=== PATIENT | male | born 1955 | race Caucasian/White ===

== ENCOUNTER 2018-07-16 18:06 | Inpatient (IN) | payer MEDICARE, OTHER ==
--- NOTE | 2018-07-16 19:02 | ER Document Report ---
ED Medical Screen (RME) - General Chief Complaint: Cough Stated Complaint: CONGESTION Time Seen by Provider: 07/16/18 18:55 Primary Care Provider: DONA OLIVAREZ NP [Primary Care Provider] - Follow up as needed Mode of Arrival: Ambulatory Information source: Patient Notes: 63-year-old male presented to ED for complaint of cough cold congestion since night. He states that his temperature was up to 103. He states is not really had a high fever since then. States he had a low-grade fever. He does have a history of COPD spinocerebellar disease bladder cancer which the tumors were removed a fractured ankle with surgeries x2 and tremors. He states he lives with his . He is a former smoker he quit when he was diagnosed with COPD and is drinks about a 12 pack a day. states he does often have tremors. Patient is alert oriented respirations regular and unlabored speaking in full sentences. Patient does have some mild Rales throughout his lungs. I have greeted and performed a rapid initial assessment of this patient. A comprehensive ED assessment and evaluation of the patient, analysis of test results and completion of medical decision making process will be conducted by an additional ED providers. Dictation of this chart was performed using voice recognition software; therefore, there may be some unintended grammatical errors. TRAVEL OUTSIDE OF THE [place] IN LAST 30 DAYS: No - Related Data Allergies/Adverse Reactions: iodine Allergy (Verified 07/16/18 18:11) Past Medical History - Past Medical History Cardiac Medical History: Reports: Hx Hypertension - Has recently been taken off all medications. Denies: Hx Heart Attack Pulmonary Medical History: Reports: Hx COPD Denies: Hx Asthma, Hx Bronchitis, Hx Pneumonia Neurological Medical History: Denies: Hx Cerebrovascular Accident, Hx Seizures Endocrine Medical History: Reports: Hx Diabetes Mellitus Type 2 - Diet controlled GI Medical History: Reports: Hx Gastroesophageal Reflux Disease, Hx Hiatal Hernia Musculoskeltal Medical History: Denies Hx Arthritis Past Surgical History: Reports: Hx Abdominal Surgery - tumor removed from bladder, Hx Orthopedic Surgery - ankle - Immunizations Hx Diphtheria, Pertussis, Tetanus Vaccination: Yes Physical Exam - Vital signs Vitals: Temp Pulse Resp BP Pulse Ox 98.0 F 96 24 H 123/80 98 07/16/18 18:19 07/16/18 18:19 07/16/18 18:19 07/16/18 18:19 07/16/18 18:19 Course - Vital Signs Vital signs: Temp Pulse Resp BP Pulse Ox 98.0 F 96 24 H 123/80 98 07/16/18 18:19 07/16/18 18:19 07/16/18 18:19 07/16/18 18:19 07/16/18 18:19 Doctor's Discharge - Discharge Referrals: DONA OLIVAREZ NP [Primary Care Provider] - Follow up as needed
--- NOTE | 2018-07-16 19:53 | RADIOLOGY REPORT (SQ) ---
EXAM DESCRIPTION: CHEST 2 VIEWS COMPLETED DATE/TIME: 07/16/2018 7:17 pm REASON FOR STUDY: cough congestion COMPARISON: 11/25/2015. EXAM PARAMETERS: NUMBER OF VIEWS: two views TECHNIQUE: Digital Frontal and Lateral radiographic views of the chest acquired. RADIATION DOSE: NA LIMITATIONS: none FINDINGS: LUNGS AND PLEURA: Scattered ill-defined airspace disease in the right lung. Left lung rel atively clear. No pleural effusion. No pneumothorax. MEDIASTINUM AND HILAR STRUCTURES: No masses or contour abnormalities. HEART AND VASCULAR STRUCTURES: Heart normal size. No evidence for failure. BONES: No acute findings. HARDWARE: None in the chest. OTHER: No other significant finding. IMPRESSION: SCATTERED AIRSPACE DISEASE IN THE RIGHT LUNG SUSPICIOUS FOR PNEUMONIA. TECHNICAL DOCUMENTATION: JOB ID: [id number] [employer]- All Rights Reserved Reading location - IP/workstation name: [email or web address]
[2018-07-16 20:05] LABS: ABSOLUTE LYMPHOCYTES (AUTO) 0.5 10^3/uL (0.5-4.7); ABSOLUTE MONOCYTES (AUTO) 0.9 10^3/uL (0.1-1.4); ABSOLUTE NEUT (AUTO) 8.4 10^3/uL (1.7-8.2); BASOPHILS % (AUTO) 0.1 % (0-2); HEMATOCRIT 42.9 % (37.9-51.0); HEMOGLOBIN 14.9 g/dL (13.5-17.0); LYMPHOCYTES % (AUTO) 5.4 % (13-45); MEAN CORPUSCULAR HEMOGLOBIN 34.3 pg (27.0-33.4); MEAN CORPUSCULAR HGB CONC 34.6 g/dL (32.0-36.0); MEAN CORPUSCULAR VOLUME 99 fl (80-97); PLATELET COUNT 200 10^3/uL (150-450); RED BLOOD COUNT 4.34 10^6/uL (4.35-5.55); RED CELL DISTRIBUTION WIDTH 13.6 % (11.5-14.0); SEGMENTED NEUTROPHILS % (AUTO) 85.5 % (42-78); TOTAL CELLS COUNTED % (AUTO) 100 %; WHITE BLOOD COUNT 9.8 10^3/uL (4.0-10.5)
[2018-07-16 20:10] LABS: APPEARANCE,URINE SLIGHTLY-CLOUDY; BILIRUBIN,URINE NEGATIVE (NEGATIVE); COLOR,URINE AMBER; GLUCOSE, URINE NEGATIVE (NEGATIVE); KETONES,URINE 20 mg/dL (NEGATIVE); LEUKOCYTE ESTERASE,URINE NEGATIVE (NEGATIVE); NITRITE,URINE NEGATIVE (NEGATIVE); PROTEIN,URINE 30 mg/dL (NEGATIVE); URINE SPECIFIC GRAVITY 1.017
[2018-07-16 20:16] LABS: ALANINE AMINOTRANSFERASE 50 U/L (21-72); ALBUMIN 4.1 g/dL (3.5-5.0); ALKALINE PHOSPHATASE 108 U/L (38-126); ANION GAP 19 (5-19); ASPARTATE AMINO TRANSFERASE 79 U/L (17-59); BILIRUBIN,DIRECT 0.5 mg/dL (0.0-0.4); BILIRUBIN,TOTAL 0.8 mg/dL (0.2-1.3); BLOOD UREA NITROGEN 17 mg/dL (7-20); CALCIUM 10.1 mg/dL (8.4-10.2); CARBON DIOXIDE 23 mmol/L (22-30); CHLORIDE 90 mmol/L (98-107); GLUCOSE 125 mg/dL (75-110); POTASSIUM 4.2 mmol/L (3.6-5.0); TOTAL PROTEIN 7.7 g/dL (6.3-8.2)
[2018-07-17] MEDS ORDERED: CEFTRIAXONE INJ 1000 MG VIAL IV ONE (00:34)
[2018-07-17] MEDS ORDERED: AZITHROMYCIN 250 MG TABLET PO ONE (00:34)
[2018-07-17] MEDS ORDERED: METHYLPREDNISOLONE INJ 125 MG/2 ML SDV IV ONE (00:34)
[2018-07-17] MEDS ORDERED: IPRATROPIUM/ALBUTEROL 0.5-2.5 MG/3 ML AMPUL NEB ONE (00:34)
[2018-07-17] MEDS ORDERED: LORAZEPAM INJ 2 MG/1 ML VIAL IV ONE (00:34)
[2018-07-17] MEDS ORDERED: RINGERS SOLUTION,LACTATED 1,000 ML IV ONE (00:35)
[2018-07-17] MEDS ORDERED: GUAIFENESIN SYRP 200 MG/10 ML UDC PO PRN (00:39)
[2018-07-17] MEDS ORDERED: IPRATROPIUM/ALBUTEROL 0.5-2.5 MG/3 ML AMPUL NEB PRN ×2 (00:39→15:32)
[2018-07-17] MEDS ORDERED: ACETAMINOPHEN 325 MG TABLET PO PRN (00:39)
--- NOTE | 2018-07-17 00:40 | ER Document Report ---
ED General - General Chief Complaint: Cough Stated Complaint: CONGESTION Time Seen by Provider: 07/16/18 18:55 Primary Care Provider: DONA OLIVAREZ NP [NO LOCAL MD] - Follow up as needed Mode of Arrival: Ambulatory Notes: Patient is a 63-year-old male with a past medical history of COPD, does not currently smoke, does not have an oxygen dependency at baseline, history of daily alcohol abuse, hypertension, presents due to 2 days of cough, increasing shortness of breath. Symptoms started gradually, have been worsening since onset and are now constant. Regards him as being severe. Nothing improves or worsens his symptoms. States that this feels similar to when he has had COPD exacerbations in the past. Has not seen his primary care physician regarding today's concerns. Has not had any vomiting, diarrhea, fever, or syncope. Does admit to feeling as though he is beginning to withdraw from alcohol. TRAVEL OUTSIDE OF THE [place] IN LAST 30 DAYS: No - Related Data Allergies/Adverse Reactions: iodine Allergy (Verified 07/16/18 18:11) Past Medical History - General Information source: Patient - Social History Smoking Status: Former Smoker Chew tobacco use (# tins/day): No Frequency of alcohol use: Heavy Drug Abuse: None Lives with: Spouse/Significant other Family History: Hypertension Patient has suicidal ideation: No Patient has homicidal ideation: No - Past Medical History Cardiac Medical History: Reports: Hx Hypertension - Has recently been taken off all medications. Denies: Hx Heart Attack Pulmonary Medical History: Reports: Hx COPD Denies: Hx Asthma, Hx Bronchitis, Hx Pneumonia Neurological Medical History: Denies: Hx Cerebrovascular Accident, Hx Seizures Endocrine Medical History: Reports: Hx Diabetes Mellitus Type 2 - Diet controlled Renal/ Medical History: Denies: Hx Peritoneal Dialysis GI Medical History: Reports: Hx Gastroesophageal Reflux Disease, Hx Hiatal Hernia Musculoskeletal Medical History: Denies Hx Arthritis Past Surgical History: Reports: Hx Abdominal Surgery - tumor removed from bladder, Hx Orthopedic Surgery - ankle - Immunizations Hx Diphtheria, Pertussis, Tetanus Vaccination: Yes Hx Pneumococcal Vaccination: 01/04/15 Review of Systems - Review of Systems Notes: Constitutional: Negative for fever. HENT: Negative for sore throat. Eyes: Negative for visual changes. Cardiovascular: Negative for chest pain. Respiratory: Positive for cough and shortness of breath Gastrointestinal: Negative for abdominal pain, vomiting or diarrhea. Genitourinary: Negative for dysuria. Musculoskeletal: Negative for back pain. Skin: Negative for rash. Neurological: Negative for headaches, weakness or numbness. 10 point ROS negative except as marked above and in HPI. Physical Exam - Vital signs Vitals: Temp Pulse Resp BP Pulse Ox 98.0 F 96 24 H 123/80 98 07/16/18 18:19 07/16/18 18:19 07/16/18 18:19 07/16/18 18:19 07/16/18 18:19 Interpretation: Tachycardic, Hypoxic, Tachypneic Notes: PHYSICAL EXAMINATION: GENERAL: Appears somewhat older than stated age, somewhat labored in his breathing but in no overt distress. HEAD: Atraumatic, normocephalic. EYES: Pupils equal round and reactive to light, extraocular movements intact, sclera anicteric, conjunctiva are normal. ENT: nares patent, oropharynx clear without exudates. Moderately dry mucous membranes. NECK: Normal range of motion, supple without lymphadenopathy LUNGS: Scattered wheezing in all lung sparks, diminished at the right base in p articular. Mild tachypnea. No distress. HEART: Regular tachycardia without murmurs ABDOMEN: Soft, nontender, normoactive bowel sounds. No guarding, no rebound. No masses appreciated. EXTREMITIES: Normal range of motion, no pitting or edema. No cyanosis. NEUROLOGICAL: No focal neurological deficits. Moves all extremities spontaneously and on command. Mildly tremulous PSYCH: Normal mood, normal affect. SKIN: Warm, Dry, normal turgor, no rashes or lesions noted. Course - Re-evaluation Re-evalutation: 07/17/18 00:35 Patient presents with hypoxia, cough, and shortness of breath. Saturating 88% on room air. Does not have a history of oxygen dependence. The patient is found on chest x-ray to have sided infiltrate on on lung examination also has scattered wheezing in all lung sparks consistent with a combined pneumonia and COPD picture. His labs are otherwise unremarkable. Patient also appears to have some alcohol withdrawal at time of presentation with tremulousness and tachycardia which could be secondary to his underlying hypoxia, COPD and pneumonia but could also be contributed to due to his alcohol withdrawal. He has been started on Ativan here in the emergency department. I have started him on ceftriaxone and azithromycin for his pneumonia. IV fluid resuscitation, steroids and duo nebulizers have been initiated for his COPD exacerbation. The patient is not appropriate for outpatient management given his hypoxia. I have discussed this case with Dr. Rios the hospitalist on-call who is accepted the patient for admission. - Vital Signs Vital signs: Temp Pulse Resp BP Pulse Ox 98.0 F 96 24 H 123/80 98 07/16/18 18:19 07/16/18 18:19 07/16/18 18:19 07/16/18 18:19 07/16/18 18:19 - Laboratory Result Diagrams: 07/16/18 19:35 07/16/18 19:35 Laboratory results interpreted by me: 07/16/18 07/16/18 07/16/18 19:20 19:35 19:35 RBC 4.34 L MCV 99 H MCH 34.3 H Seg Neutrophils % 85.5 H Lymphocytes % 5.4 L Absolute Neutrophils 8.4 H Sodium 132.0 L Chloride 90 L Glucose 125 H Direct Bilirubin 0.5 H AST 79 H Urine Protein 30 H Urine Ketones 20 H Urine Blood SMALL H Urine Urobilinogen 2.0 H - Diagnostic Test Radiology reviewed: Image reviewed, Reports reviewed Radiology results interpreted by me: 07/17/18 00:38 Chest x-ray: Right-sided pneumonia Discharge - Discharge Clinical Impression: COPD exacerbation COPD (chronic obstructive pulmonary disease) Qualifiers: COPD type: unspecified COPD Qualified Code(s): J44.9 - Chronic obstructive pulmonary disease, unspecified Alcohol withdrawal Qualifiers: Complication of substance-induced condition: uncomplicated Qualified Code(s): F10.230 - Alcohol dependence with withdrawal, uncomplicated Pneumonia Qualifiers: Pneumonia type: due to unspecified organism Laterality: right Lung location: unspecified part of lung Qualified Code(s): J18.9 - Pneumonia, unspecified organism Condition: Fair Disposition: ADMITTED INPATIENT Admitting Provider: Gabriel (Hospitalist) Unit Admitted: [facility] Referrals: DONA OLIVAREZ NP [NO LOCAL MD] - Follow up as needed
[2018-07-17] MEDS ORDERED: NICOTINE 7 MG/24 HR PATCH.TD24 TD ONE (00:44)
[2018-07-17] MEDS: FOLIC ACID 1 MG TABLET PO SCH ×2 (00:59→09:28)
[2018-07-17] MEDS: DIAZEPAM 5 MG TABLET PO SCH ×2 (01:16→09:28)
[2018-07-17] MEDS: THIAMINE HCL 100 MG TABLET PO SCH ×2 (01:17→09:28)
[2018-07-17] MEDS: FLUTICASONE NASAL SPRAY 50 MCG/SPRY 120 SPRAY/16 GM NASL SCH ×3 (01:32→21:55)
[2018-07-17] MEDS: LEVALBUTEROL HCL NEB 1.25 MG/3 ML AMPUL NEB SCH ×4 (02:38→19:55)
[2018-07-17] MEDS: IPRATROPIUM BROMIDE 0.02% NEB 0.5 MG/2.5 ML AMPUL NEB SCH ×4 (02:39→19:55)
[2018-07-17 03:30] LABS: HEMATOCRIT 36.9 % (37.9-51.0); MEAN CORPUSCULAR HEMOGLOBIN 33.8 pg (27.0-33.4); MEAN CORPUSCULAR HGB CONC 34.5 g/dL (32.0-36.0); MEAN CORPUSCULAR VOLUME 98 fl (80-97); RED BLOOD COUNT 3.76 10^6/uL (4.35-5.55); RED CELL DISTRIBUTION WIDTH 13.6 % (11.5-14.0); WHITE BLOOD COUNT 6.6 10^3/uL (4.0-10.5)
[2018-07-17 03:36] LABS: HEMOGLOBIN 12.7 g/dL (13.5-17.0)
[2018-07-17 03:43] LABS: ANION GAP 16 (5-19); BLOOD UREA NITROGEN 19 mg/dL (7-20); CALCIUM 9.3 mg/dL (8.4-10.2); CARBON DIOXIDE 21 mmol/L (22-30); CHLORIDE 94 mmol/L (98-107); GLUCOSE 140 mg/dL (75-110); POTASSIUM 3.9 mmol/L (3.6-5.0); SODIUM 130.9 mmol/L (137-145)
[2018-07-17 03:49] LABS: ABSOLUTE LYMPHOCYTES# (MANUAL) 0.6 10^3/uL (0.5-4.7); ABSOLUTE MONOCYTES # (MANUAL) 0.5 10^3/uL (0.1-1.4); ABSOLUTE NEUTROPHILS# (MANUAL) 5.5 10^3/uL (1.7-8.2); BAND NEUTROPHILS % (MANUAL) 5 % (3-5); BASOPHILS % (MANUAL) 0 % (0-2); EOSINOPHILS % (MANUAL) 0 % (0-6); LYMPHOCYTES % (MANUAL) 7 % (13-45); MONOCYTES % (MANUAL) 7 % (3-13); SEGMENTED NEUTROPHILS % (MAN) 79 % (42-78); TOTAL CELLS COUNTED 100
[2018-07-17 03:50] LABS: PLATELET CLUMPS PRESENT; PLATELET COMMENT ADEQUATE; PLATELET COUNT 178 10^3/uL (150-450); STOMATOCYTES SLIGHT
[2018-07-17] MEDS: HEPARIN SOD (PORCINE) 5,000 UNIT/ML 1 ML SYRINGE SUBCUT SCH ×3 (05:04→21:55)
[2018-07-17] MEDS: LORAZEPAM INJ 2 MG/1 ML VIAL IV PRN (05:27)
--- NOTE | 2018-07-17 05:52 | PDOC H&P ---
History of Present Illness Admission Date/PCP: 07/17/18 00:57 Patient complains of: Shortness of breath and nonproductive cough History of Present Illness: JAVON ALVA is a 63 year old male with a past medical history of hypertension, COPD, with 2 or 3 exacerbations per year, tobacco and heavy alcohol dependence. Patient is a poor historian but states symptoms of shortness of breath and cough have began gradually over a 2-week. Developing right abdominal wall pain while coughing prompts his evaluation in the emergency room grandson to have use of accessory muscles with retraction tachypnea, hypoxia, and a right lower lobe infiltrate. He started on empiric antibiotics and referred to the hospitalist for admission. Patient denies coughing or aspir ation though admittedly drinks approximately 12 beers per day slowing down of the last 72 hours he admits feeling shaky. Patient denies recent antibiotic use Past Medical History Cardiac Medical History: Reports: Hypertension - Has recently been taken off all medications. Denies: Myocardial Infarction Pulmonary Medical History: Reports: Chronic Obstructive Pulmonary Disease (COPD) Denies: Asthma, Bronchitis, Pneumonia Neurological Medical History: Denies: Seizures Endocrine Medical History: Reports: Diabetes Mellitus Type 2 - Diet controlled GI Medical History: Reports: Gastroesophageal Reflux Disease, Hiatal Hernia Musculoskeltal Medical History: Denies: Arthritis Psychiatric Medical History: Reports: Alcohol Dependency, Tobacco Dependency Hematology: Denies: Anemia Past Surgical History Past Surgical History: Reports: Orthopedic Surgery - ankle Social History Information Source: Patient, Emergency Med Personnel, [facility] Records Lives with: Spouse/Significant other Smoking Status: Former Smoker Frequency of Alcohol Use: Heavy Hx Recreational Drug Use: No Drugs: None - Advance Directive Resuscitation Status: Full Code Family History Family History: COPD, Hypertension Parental Family History Reviewed: Yes Children Family History Reviewed: Yes Sibling(s) Family History Reviewed.: Yes Medication/Allergy Home Medications: Benztropine Mesylate [Cogentin 1 mg Tablet] 1 tab PO BID 11/25/15 Esomeprazole Magnesium [Nexium] 40 mg PO DAILY 11/25/15 Meloxicam [Mobic] 0 mg PO QAM 11/25/15 Primidone [Mysoline] 150 mg PO QAM 11/25/15 Primidone [Mysoline] 200 mg PO QHS 11/25/15 Albuterol Sulfate [Ventolin 0.083% Neb 2.5 mg/3 ml Ampul] 2.5 mg NEB Q6HP PRN #1 pkg 11/29/15 Levalbuterol HCl [Xopenex Neb 1.25 mg/3 ml Ampul] 1.25 mg NEB Q6HP PRN #1 pkg 11/29/15 Levofloxacin [Levaquin 750 mg Tablet] 750 mg PO DAILY #5 tablet 11/29/15 Lorazepam [Ativan 0.5 mg Tablet] 0.5 mg PO DAILY #4 tab 11/29/15 Nebulizer [Nebulizer Machine] 1 each MC ASDIR PRN #1 kit 11/29/15 Prednisone [Deltasone 20 mg Tablet] 20 mg PO ASDIR #21 tablet 11/29/15 Allergies/Adverse Reactions: iodine Allergy (Verified 07/16/18 18:11) Review of Systems Constitutional: ABSENT: chills, fever(s), headache(s), weight gain, weight loss Eyes: ABSENT: visual disturbances Ears: ABSENT: hearing changes Cardiovascular: ABSENT: chest pain, dyspnea on exertion, edema, orthropnea, palpitations Respiratory: ABSENT: cough, hemoptysis Gastrointestinal: ABSENT: abdominal pain, constipation, diarrhea, hematemesis, hematochezia, nausea, vomiting Genitourinary: ABSENT: dysuria, hematuria Musculoskeletal: ABSENT: joint swelling Integumentary: ABSENT: rash, wounds Neurological: ABSENT: abnormal gait, abnormal speech, confusion, dizziness, focal weakness, syncope Psychiatric: ABSENT: anxiety, depression, homidical ideation, suicidal ideation Endocrine: ABSENT: cold intolerance, heat intolerance, polydipsia, polyuria Hematologic/Lymphatic: ABSENT: easy bleeding, easy bruising Physical Exam Vital Signs: Temp Pulse Resp BP Pulse Ox 100.0 F 125 H 28 H 145/78 H 96 07/17/18 03:48 07/17/18 03:48 07/17/18 03:48 07/17/18 03:48 07/17/18 03:48 Intake & Output 07/15/18 07/16/18 07/17/18 11:59 11:59 11:59 Weight 62.7 kg General appearance: PRESENT: cooperative, mild distress, thin, well-developed. ABSENT: hard of hearing, well-nourished Head exam: PRESENT: atraumatic, normocephalic Eye exam: PRESENT: conjunctiva pink, EOMI, PERRLA. ABSENT: scleral icterus Ear exam: PRESENT: normal external ear exam Mouth exam: PRESENT: moist, tongue midline Neck exam: ABSENT: carotid bruit, JVD, lymphadenopathy, thyromegaly Respiratory exam: PRESENT: accessory muscle use, prolonged expiratory phas, retraction, rhonchi, tachypnea. ABSENT: stridor Cardiovascular exam: PRESENT: +S1, +S2, tachycardia. ABSENT: irregular rhythm Pulses: PRESENT: normal dorsalis pedis pul Vascular exam: PRESENT: normal capillary refill GI/Abdominal exam: PRESENT: normal bowel sounds, soft, tenderness - Right lower quadrant abdominal wall tenderness with coughing. ABSENT: distended, guarding, mass, organolmegaly, rebound Rectal exam: PRESENT: deferred Extremities exam: PRESENT: full ROM. ABSENT: calf tenderness, clubbing, pedal edema Neurological exam: PRESENT: alert, altered, awake, oriented to person, oriented to place, oriented to time, oriented to situation, CN II-XII grossly intact. ABSENT: motor sensory deficit Psychiatric exam: PRESENT: agitated, anxious, unusual affect Skin exam: PRESENT: dry, intact, warm. ABSENT: cyanosis, rash Results Laboratory Results: 07/17/18 03:00 07/17/18 03:00 07/16/18 07/16/18 07/16/18 19:20 19:35 19:35 WBC 9.8 RBC 4.34 L Hgb 14.9 Hct 42.9 MCV 99 H MCH 34.3 H MCHC 34.6 RDW 13.6 Plt Count 200 Seg Neutrophils % 85.5 H Lymphocytes % 5.4 L Monocytes % 9.0 Eosinophils % 0.0 Basophils % 0.1 Absolute Neutrophils 8.4 H Absolute Lymphocytes 0.5 Absolute Monocytes 0.9 Absolute Eosinophils 0.0 Absolute Basophils 0.0 Sodium 132.0 L Potassium 4.2 Chloride 90 L Carbon Dioxide 23 Anion Gap 19 BUN 17 Creatinine 0.95 Est GFR ( Amer) > 60 Est GFR (Non-Af Amer) > 60 Glucose 125 H Calcium 10.1 Total Bilirubin 0.8 AST 79 H ALT 50 Alkaline Phosphatase 108 Total Protein 7.7 Albumin 4.1 Urine Color JOSHUA Urine Appearance SLIGHTLY-CLOUDY Urine pH 5.0 Ur Specific [place] 1.017 Urine Protein 30 H Urine Glucose (UA) NEGATIVE Urine Ketones 20 H Urine Blood SMALL H Urine Nitrite NEGATIVE Ur Leukocyte Esterase NEGATIVE Urine WBC (Auto) 3 Urine RBC (Auto) 1 07/17/18 07/17/18 03:00 03:00 WBC 6.6 RBC 3.76 L Hgb 12.7 L D Hct 36.9 L MCV 98 H MCH 33.8 H MCHC 34.5 RDW 13.6 Plt Count 178 Seg Neutrophils % Not Reportable Lymphocytes % Not Reportable Monocytes % Not Reportable Eosinophils % Not Reportable Basophils % Not Reportable Absolute Neutrophils Not Reportable Absolute Lymphocytes Not Reportable Absolute Monocytes Not Reportable Absolute Eosinophils Not Reportable Absolute Basophils Not Reportable Sodium 130.9 L Potassium 3.9 Chloride 94 L Carbon Dioxide 21 L Anion Gap 16 BUN 19 Creatinine 0.65 Est GFR ( Amer) > 60 Est GFR (Non-Af Amer) > 60 Glucose 140 H Calcium 9.3 Total Bilirubin AST ALT Alkaline Phosphatase Total Protein Albumin Urine Color Urine Appearance Urine pH Ur Specific [place] Urine Protein Urine Glucose (UA) Urine Ketones Urine Blood Urine Nitrite Ur Leukocyte Esterase Urine WBC (Auto) Urine RBC (Auto) Impressions: Chest X-Ray 07/16/18 19:00 IMPRESSION: SCATTERED AIRSPACE DISEASE IN THE RIGHT LUNG SUSPICIOUS FOR PNEUMONIA. Assessment and Plan - Diagnosis (1) Pneumonia Qualifiers: Pneumonia type: due to unspecified organism Laterality: right Lung location: unspecified part of lung Qualified Code(s): J18.9 - Pneumonia, unspecified organism Is this a current diagnosis for this admission?: Yes Plan: Comp located by COPD and alcoholism. Empiric antibiotics for coverage of possible aspiration. Xopenex, Atrovent, Flonase follow-up CBC and blood culture (2) COPD (chronic obstructive pulmonary disease) Qualifiers: COPD type: unspecified COPD Qualified Code(s): J44.9 - Chronic obstructive pulmonary disease, unspecified Is this a current diagnosis for this admission?: Yes Plan: Secondary to #1, supplemental oxygen, prednisone, empiric antibiotics, incentive spirometry and flutter valve (3) Alcohol withdrawal Qualifiers: Complication of substance-induced condition: uncomplicated Qualified Code(s): F10.230 - Alcohol dependence with withdrawal, uncomplicated Is this a current diagnosis for this admission?: Yes Plan: Thiamine, folate, Valium with Ativan as needed (4) GERD (gastroesophageal reflux disease) Is this a current diagnosis for this admission?: Yes Plan: Pepcid twice daily - Time Time Spent with patient: 35 or more minutes - Inpatient Certification Medical Necessity: Need Close Monitoring Due to Risk of Patient Decompensation
[2018-07-17] MEDS ORDERED: PREDNISONE 20 MG TABLET ONE (05:56)
[2018-07-17] MEDS ORDERED: PREDNISONE 20 MG TABLET PO ONE (06:15)
[2018-07-17] MEDS: BENZTROPINE MESYLATE 1 MG TABLET PO SCH ×2 (09:28→17:26)
[2018-07-17] MEDS: LEVOFLOXACIN 750 MG/D5W RTU 750 MG/150 ML RTUPB IV SCH (09:28)
[2018-07-17] MEDS: FAMOTIDINE 20 MG TABLET PO SCH ×2 (09:28→21:55)
[2018-07-17] MEDS: BEER PO SCH ×2 (13:52→17:27)
[2018-07-17] MEDS: LORAZEPAM 1 MG TABLET PO SCH ×2 (13:56→21:55)
[2018-07-17] MEDS ORDERED: (PENDING PHARMACY ID) (Atenolol [Tenormin] 25 MG) PO SCH (15:45)
--- NOTE | 2018-07-17 16:35 | Progress Note ---
Provider Note Provider Note: JAVON ALVA is a 63 year old male with a past medical history of hypertension, COPD, with 2 or 3 exacerbations per year, tobacco and heavy alcohol dependence. The patient was admitted to Hospitalist service for COPD exacerbation and PNA. Agree with budget analyst plan of care: 1. COPD exacerbation: Stemming from RLL PNA. Continue empiric antibiotic coverage. PRN nebulizer treatments. P.o. prednisone. 2. PNA: RLL PNA seen on CXR. Continue antibiotic coverage with Levaquin for treatment of pneumonia in a COPD patient. 3. ETOH withdrawal: Drinks approximately 12 beers per day. PRN IV Ativan for agitation or withdrawal. Daily thiamine and folate. Scheduled p.o. Ativan. 1 can of beer 3 times daily with meals. 4. Parkinsons: Continue home medications amantadine and primidone
[2018-07-17] MEDS: PANTOPRAZOLE SODIUM 40 MG TABLET.DR PO SCH (17:26)
[2018-07-17] MEDS: PREDNISONE 20 MG TABLET PO SCH (17:27)
[2018-07-17] MEDS: PRIMIDONE 50 MG TABLET PO SCH (17:27)
[2018-07-17] MEDS: ATENOLOL 50 MG TABLET PO SCH (17:28)
[2018-07-17] MEDS: AMANTADINE HCL 100 MG CAPSULE PO SCH (17:28)
[2018-07-17] MEDS ORDERED: (PENDING PHARMACY ID) (Amantadine Hcl [Amantadine] 100 MG) PO SCH (18:00)
[2018-07-17] MEDS ORDERED: (PENDING PHARMACY ID) (Fluticasone/Salmeterol 1 INH) IH SCH (22:00)
[2018-07-18] MEDS: LEVALBUTEROL HCL NEB 1.25 MG/3 ML AMPUL NEB SCH ×4 (01:58→20:01)
[2018-07-18] MEDS: IPRATROPIUM BROMIDE 0.02% NEB 0.5 MG/2.5 ML AMPUL NEB SCH ×4 (01:58→20:01)
[2018-07-18] MEDS: LORAZEPAM INJ 2 MG/1 ML VIAL IV PRN (03:25)
[2018-07-18] MEDS: HEPARIN SOD (PORCINE) 5,000 UNIT/ML 1 ML SYRINGE SUBCUT SCH ×3 (05:21→21:09)
[2018-07-18] MEDS: LORAZEPAM 1 MG TABLET PO SCH ×3 (05:21→21:09)
[2018-07-18 05:50] LABS: ABSOLUTE LYMPHOCYTES (AUTO) 0.6 10^3/uL (0.5-4.7); ABSOLUTE MONOCYTES (AUTO) 0.6 10^3/uL (0.1-1.4); ABSOLUTE NEUT (AUTO) 6.2 10^3/uL (1.7-8.2); BASOPHILS % (AUTO) 0.2 % (0-2); HEMATOCRIT 34.6 % (37.9-51.0); LYMPHOCYTES % (AUTO) 8.4 % (13-45); MEAN CORPUSCULAR HEMOGLOBIN 33.8 pg (27.0-33.4); MEAN CORPUSCULAR HGB CONC 34.6 g/dL (32.0-36.0); MEAN CORPUSCULAR VOLUME 98 fl (80-97); MONOCYTES % (AUTO) 8.2 % (3-13); PLATELET COUNT 183 10^3/uL (150-450); RED BLOOD COUNT 3.54 10^6/uL (4.35-5.55); RED CELL DISTRIBUTION WIDTH 13.4 % (11.5-14.0); SEGMENTED NEUTROPHILS % (AUTO) 83.2 % (42-78); TOTAL CELLS COUNTED % (AUTO) 100 %; WHITE BLOOD COUNT 7.4 10^3/uL (4.0-10.5)
[2018-07-18 06:11] LABS: ANION GAP 12 (5-19); BLOOD UREA NITROGEN 16 mg/dL (7-20); CALCIUM 8.9 mg/dL (8.4-10.2); CARBON DIOXIDE 25 mmol/L (22-30); CHLORIDE 96 mmol/L (98-107); GLUCOSE 115 mg/dL (75-110); POTASSIUM 3.7 mmol/L (3.6-5.0); SODIUM 133.2 mmol/L (137-145)
[2018-07-18] MEDS: PRIMIDONE 50 MG TABLET PO SCH (09:03)
[2018-07-18] MEDS: ATENOLOL 50 MG TABLET PO SCH (09:03)
[2018-07-18] MEDS: PANTOPRAZOLE SODIUM 40 MG TABLET.DR PO SCH (09:03)
[2018-07-18] MEDS: FLUTICASONE NASAL SPRAY 50 MCG/SPRY 120 SPRAY/16 GM NASL SCH ×2 (09:05→21:08)
[2018-07-18] MEDS: FLUTICASONE/VILANTEROL 200-25 MCG/DOSE IH SCH (09:05)
[2018-07-18] MEDS: AMANTADINE HCL 100 MG CAPSULE PO SCH ×2 (09:05→17:44)
[2018-07-18] MEDS: FAMOTIDINE 20 MG TABLET PO SCH ×2 (09:11→21:09)
[2018-07-18] MEDS: THIAMINE HCL 100 MG TABLET PO SCH (09:11)
[2018-07-18] MEDS: LEVOFLOXACIN 750 MG/D5W RTU 750 MG/150 ML RTUPB IV SCH (09:11)
[2018-07-18] MEDS: FOLIC ACID 1 MG TABLET PO SCH (09:11)
[2018-07-18] MEDS: BENZTROPINE MESYLATE 1 MG TABLET PO SCH ×2 (09:11→17:44)
[2018-07-18] MEDS: PREDNISONE 20 MG TABLET PO SCH ×2 (09:11→17:44)
[2018-07-18] MEDS: BEER PO SCH ×3 (09:27→17:44)
--- NOTE | 2018-07-18 16:04 | PDOC PROGRESS REPORT ---
Subjective Progress Note for:: 07/18/18 Subjective:: JAVON ALVA is a 63 year old male with a past medical history of hypertension, COPD, with 2 or 3 exacerbations per year, tobacco and heavy alcohol dependence. The patient was admitted to Hospitalist service for COPD exacerbation and PNA. Patient was seen this morning on rounds, at the bedside. The patient states that he feels "better" this morning, but is unable to verbalize exactly what symptoms have resolved. The patient is resting in bed comfortably on supplemental oxygen via nasal cannula. Currently he is receiving 4 LPM, SPO2 is >95%. The states that the patient seems more alert today. Lungs are clear to auscultation. No evidence of peripheral or central cyanosis. Pulses are palpable in the upper and lower extremities, no evidence of peripheral edema. Plan to wean supplemental oxygen as tolerated. Ambulate patient in hallway e very shift. Likely discharge home within 24 to 48 hours. Reason For Visit: COPD EXACERBATION C LL PNEUMONIA AND ETOH WD Physical Exam Vital Signs: Temp Pulse Resp BP Pulse Ox 97.6 F 92 14 129/72 H 92 07/18/18 07:52 07/18/18 14:00 07/18/18 13:52 07/18/18 11:57 07/18/18 13:52 Intake & Output 07/17/18 07/18/18 07/19/18 06:59 06:59 06:59 Intake Total 2339 150 Balance 2339 150 Weight 63.2 kg 62.2 kg General appearance: PRESENT: well-developed, well-nourished Head exam: PRESENT: atraumatic Eye exam: PRESENT: conjunctiva pink, PERRLA Mouth exam: PRESENT: moist, tongue midline Neck exam: PRESENT: full ROM Respiratory exam: PRESENT: clear to auscultation yohana, symmetrical, unlabored, other - Requiring supplemental oxygen via nasal cannula. ABSENT: prolonged expiratory phas, retraction, tachypnea, wheezes Cardiovascular exam: PRESENT: RRR Pulses: PRESENT: normal radial pulses, normal dorsalis pedis pul Vascular exam: PRESENT: normal capillary refill GI/Abdominal exam: PRESENT: soft. ABSENT: distended, tenderness Rectal exam: PRESENT: deferred Extremities exam: PRESENT: full ROM Musculoskeletal exam: PRESENT: ambulatory, full ROM Neurological exam: PRESENT: alert, awake, oriented to person, oriented to place, oriented to time, oriented to situation Psychiatric exam: PRESENT: appropriate affect Skin exam: PRESENT: dry, intact, normal color Results Laboratory Results: 07/18/18 04:57 07/18/18 04:57 07/18/18 07/18/18 04:57 04:57 WBC 7.4 RBC 3.54 L Hgb 12.0 L Hct 34.6 L MCV 98 H MCH 33.8 H MCHC 34.6 RDW 13.4 Plt Count 183 Seg Neutrophils % 83.2 H Lymphocytes % 8.4 L Monocytes % 8.2 Eosinophils % 0.0 Basophils % 0.2 Absolute Neutrophils 6.2 Absolute Lymphocytes 0.6 Absolute Monocytes 0.6 Absolute Eosinophils 0.0 Absolute Basophils 0.0 Sodium 133.2 L Potassium 3.7 Chloride 96 L Carbon Dioxide 25 Anion Gap 12 BUN 16 Creatinine 0.55 Est GFR ( Amer) > 60 Est GFR (Non-Af Amer) > 60 Glucose 115 H Calcium 8.9 Impressions: Chest X-Ray 07/16/18 19:00 IMPRESSION: SCATTERED AIRSPACE DISEASE IN THE RIGHT LUNG SUSPICIOUS FOR PNE UMONIA. Status: Imported from PACS Assessment and Plan - Diagnosis (1) COPD exacerbation Is this a current diagnosis for this admission?: Yes Plan: Secondary to RLL PNA Continue empiric antibiotic coverage PRN and scheduled nebulizer treatments Twice daily Mucinex P.o. prednisone Supplemental oxygen via nasal cannula for SPO2>88%, wean as tolerated (2) Pneumonia Qualifiers: Pneumonia type: due to unspecified organism Laterality: right Lung location: unspecified part of lung Qualified Code(s): J18.9 - Pneumonia, unspecified organism Is this a current diagnosis for this admission?: Yes Plan: RLL PNA seen on CXR Continue antibiotic coverage with Levaquin for treatment of PNA and a COPD patient (3) Parkinsons disease Is this a current diagnosis for this admission?: Yes Plan: H Parkinson's disease Continue home dose medications amantadine and primidone (4) Heavy alcohol use Is this a current diagnosis for this admission?: Yes Plan: Patient reports he drinks approximately 12 beers per day PRN IV Ativan for agitation or withdrawal Scheduled p.o. Ativan Daily thiamine and folate 1 can of beer 3 times daily with meals - Time Time Spent with patient: 15-24 minutes Medications reviewed and adjusted accordingly: Yes Anticipated discharge: Home Within: within 24 hours - Inpatient Certification Based on my medical assessment, after consideration of the patient's comorbidities, presenting symptoms, or acuity I expect that the services needed warrant INPATIENT care.: Yes I certify that my determination is in accordance with my understanding of Medicare's requirements for reasonable and necessary INPATIENT services [42 CFR 412.3e].: Yes Medical Necessity: Need For Continuous Telemetry Monitoring, Need for Nebulizer Therapy and Monitoring of Response, Risk of Complication if Not Cared For in Hospital
[2018-07-19] MEDS: IPRATROPIUM BROMIDE 0.02% NEB 0.5 MG/2.5 ML AMPUL NEB SCH ×3 (02:20→13:41)
[2018-07-19] MEDS: LEVALBUTEROL HCL NEB 1.25 MG/3 ML AMPUL NEB SCH ×2 (02:20→08:37)
[2018-07-19 04:40] LABS: ABSOLUTE LYMPHOCYTES (AUTO) 0.7 10^3/uL (0.5-4.7); ABSOLUTE MONOCYTES (AUTO) 0.8 10^3/uL (0.1-1.4); ABSOLUTE NEUT (AUTO) 5.5 10^3/uL (1.7-8.2); BASOPHILS % (AUTO) 0.2 % (0-2); EOSINOPHILS % (AUTO) 0.2 % (0-6); HEMATOCRIT 36.4 % (37.9-51.0); HEMOGLOBIN 12.6 g/dL (13.5-17.0); LYMPHOCYTES % (AUTO) 9.6 % (13-45); MEAN CORPUSCULAR HEMOGLOBIN 33.8 pg (27.0-33.4); MEAN CORPUSCULAR HGB CONC 34.7 g/dL (32.0-36.0); MEAN CORPUSCULAR VOLUME 98 fl (80-97); MONOCYTES % (AUTO) 10.9 % (3-13); PLATELET COUNT 221 10^3/uL (150-450); RED BLOOD COUNT 3.73 10^6/uL (4.35-5.55); RED CELL DISTRIBUTION WIDTH 13.6 % (11.5-14.0); SEGMENTED NEUTROPHILS % (AUTO) 79.1 % (42-78); TOTAL CELLS COUNTED % (AUTO) 100 %
[2018-07-19] MEDS: HEPARIN SOD (PORCINE) 5,000 UNIT/ML 1 ML SYRINGE SUBCUT SCH ×3 (05:10→21:18)
[2018-07-19] MEDS: LORAZEPAM 1 MG TABLET PO SCH (05:10)
[2018-07-19] MEDS ORDERED: LEVALBUTEROL HCL NEB 1.25 MG/3 ML AMPUL NEB PRN (09:20)
--- NOTE | 2018-07-19 09:25 | PDOC PROGRESS REPORT ---
Subjective Progress Note for:: 07/19/18 Subjective:: JAVON ALVA is a 63 year old male with a past medical history of hypertension, COPD, with 2 or 3 exacerbations per year, tobacco and heavy alcohol dependence. The patient was admitted to Hospitalist service for COPD exacerbation and PNA. Patient was seen this morning on rounds, at the bedside. The patient attempted to ambulate yesterday while on room air. He became short of breath and hypoxic (SPO2 85%). The patient is resting in bed comfortably on supplemental oxygen via nasal cannula. Currently he is receiving 1.5 LPM. Wheezing can be auscultated in the bilateral lower lobes when the patient is coughing. His lungs are otherwise clear during inhalation/exhalation. No evidence of peripheral or central cyanosis. Pulses are palpable in the upper and lower extremities, no evidence of peripheral edema. Plan to wean supplemental oxygen as tolerated. Ambulate patient in hallway every shift. Hopefully discharge home within 24 to 48 hours. Reason For Visit: COPD EXACERBATION C LL PNEUMONIA AND ETOH WD Physical Exam Vital Signs: Temp Pulse Resp BP Pulse Ox 97.3 F 88 20 125/68 89 L 07/19/18 07:43 07/19/18 07:43 07/19/18 07:36 07/19/18 07:36 07/19/18 07:43 Intake & Output 07/18/18 07/19/18 07/20/18 06:59 06:59 06:59 Intake Total 2339 1029 Balance 2339 1029 Weight 62.2 kg 61.2 kg General appearance: PRESENT: thin Eye exam: PRESENT: conjunctiva pink, PERRLA Mouth exam: PRESENT: moist, tongue midline Neck exam: PRESENT: full ROM Respiratory exam: PRESENT: clear to auscultation yohana, symmetrical, unlabored, wheezes - Bilateral lower lobes, other - Requiring supplemental oxygen via nasal cannula to maintain SPO2>88% Cardiovascular exam: PRESENT: RRR Pulses: PRESENT: normal radial pulses, normal dorsalis pedis pul Vascular exam: PRESENT: normal capillary refill GI/Abdominal exam: PRESENT: soft. ABSENT: distended, tenderness Rectal exam: PRESENT: deferred Extremities exam: PRESENT: full ROM Musculoskeletal exam: PRESENT: ambulatory - Unsteady gait, full ROM, normal inspection. ABSENT: deformity Neurological exam: PRESENT: alert, awake, oriented to person, oriented to place, oriented to time, oriented to situation Psychiatric exam: PRESENT: appropriate affect Skin exam: PRESENT: dry, intact, normal color Results Laboratory Results: 07/19/18 04:21 07/18/18 04:57 07/19/18 04:21 WBC 7.0 RBC 3.73 L Hgb 12.6 L Hct 36.4 L MCV 98 H MCH 33.8 H MCHC 34.7 RDW 13.6 Plt Count 221 Seg Neutrophils % 79.1 H Lymphocytes % 9.6 L Monocytes % 10.9 Eosinophils % 0.2 Basophils % 0.2 Absolute Neutrophils 5.5 Absolute Lymphocytes 0.7 Absolute Monocytes 0.8 Absolute Eosinophils 0.0 Absolute Basophils 0.0 Impressions: Chest X-Ray 07/16/18 19:00 IMPRESSION: SCATTERED AIRSPACE DISEASE IN THE RIGHT LUNG SUSPICIOUS FOR PNEUMONIA. Status: Imported from PACS Assessment and Plan - Diagnosis (1) COPD exacerbation Is this a current diagnosis for this admission?: Yes Plan: Secondary to RLL PNA Continue empiric antibiotic coverage PRN and scheduled nebulizer treatments Twice daily Mucinex P.o. prednisone Supplemental oxygen via nasal cannula for SPO2>88%, wean as tolerated (2) Pneumonia Qualifiers: Pneumonia type: due to unspecified organism Laterality: right Lung location: unspecified part of lung Qualified Code(s): J18.9 - Pneumonia, unspecified organism Is this a current diagnosis for this admission?: Yes Plan: RLL PNA seen on CXR Continue antibiotic coverage with Levaquin for treatment of PNA and a COPD patient (3) Parkinsons disease Is this a current diagnosis for this admission?: Yes Plan: H Parkinson's disease Continue home dose medications amantadine and primidone (4) Heavy alcohol use Is this a current diagnosis for this admission?: Yes Plan: Patient reports he drinks approximately 12 beers per day PRN IV Ativan for agitation or withdrawal Scheduled p.o. Ativan 1mg Daily thiamine and folate 1 can of beer 3 times daily with meals - Time Time Spent with patient: 15-24 minutes Medications reviewed and adjusted accordingly: Yes Anticipated discharge: Home Within: within 36 hours - Inpatient Certification Based on my medical assessment, after consideration of the patient's comorbidities, presenting symptoms, or acuity I expect that the services needed warrant INPATIENT care.: Yes I certify that my determination is in accordance with my understanding of Medicare's requirements for reasonable and necessary INPATIENT services [42 CFR 412.3e].: Yes Medical Necessity: Need For Continuous Telemetry Monitoring, Need for Nebulizer Therapy and Monitoring of Response, Risk of Complication if Not Cared For in Hospital
[2018-07-19] MEDS: FLUTICASONE/VILANTEROL 200-25 MCG/DOSE IH SCH (10:42)
[2018-07-19] MEDS: FAMOTIDINE 20 MG TABLET PO SCH ×2 (10:44→21:18)
[2018-07-19] MEDS: FLUTICASONE NASAL SPRAY 50 MCG/SPRY 120 SPRAY/16 GM NASL SCH ×2 (10:44→21:20)
[2018-07-19] MEDS: THIAMINE HCL 100 MG TABLET PO SCH (10:45)
[2018-07-19] MEDS: LEVOFLOXACIN 750 MG TABLET PO SCH (10:45)
[2018-07-19] MEDS: FOLIC ACID 1 MG TABLET PO SCH (10:46)
[2018-07-19] MEDS: PRIMIDONE 50 MG TABLET PO SCH (10:46)
[2018-07-19] MEDS: AMANTADINE HCL 100 MG CAPSULE PO SCH ×2 (10:46→17:59)
[2018-07-19] MEDS: ATENOLOL 50 MG TABLET PO SCH (10:47)
[2018-07-19] MEDS: PREDNISONE 20 MG TABLET PO SCH ×2 (10:47→17:58)
[2018-07-19] MEDS: BEER PO SCH ×3 (10:48→18:04)
[2018-07-19] MEDS: PANTOPRAZOLE SODIUM 40 MG TABLET.DR PO SCH (10:48)
[2018-07-19] MEDS: BENZTROPINE MESYLATE 1 MG TABLET PO SCH ×2 (10:48→17:58)
[2018-07-19] MEDS: IPRATROPIUM/ALBUTEROL 0.5-2.5 MG/3 ML AMPUL NEB SCH ×3 (12:22→20:32)
[2018-07-19] MEDS ORDERED: LORAZEPAM 1 MG TABLET PO SCH (14:00)
[2018-07-19] MEDS: LORAZEPAM 0.5 MG TABLET PO SCH ×2 (14:01→21:18)
[2018-07-20] MEDS: IPRATROPIUM/ALBUTEROL 0.5-2.5 MG/3 ML AMPUL NEB SCH ×3 (01:05→08:35)
[2018-07-20] MEDS: LORAZEPAM 0.5 MG TABLET PO SCH (05:14)
[2018-07-20] MEDS: HEPARIN SOD (PORCINE) 5,000 UNIT/ML 1 ML SYRINGE SUBCUT SCH (05:15)
[2018-07-20 06:44] LABS: HEMOGLOBIN 12.8 g/dL (13.5-17.0); MEAN CORPUSCULAR HEMOGLOBIN 33.7 pg (27.0-33.4); MEAN CORPUSCULAR HGB CONC 34.6 g/dL (32.0-36.0); MEAN CORPUSCULAR VOLUME 98 fl (80-97); PLATELET COUNT 284 10^3/uL (150-450); RED CELL DISTRIBUTION WIDTH 13.6 % (11.5-14.0); WHITE BLOOD COUNT 5.8 10^3/uL (4.0-10.5)
[2018-07-20 07:10] LABS: ALANINE AMINOTRANSFERASE 84 U/L (21-72); ALKALINE PHOSPHATASE 94 U/L (38-126); ANION GAP 13 (5-19); ASPARTATE AMINO TRANSFERASE 57 U/L (17-59); BILIRUBIN,DIRECT 0.3 mg/dL (0.0-0.4); BILIRUBIN,TOTAL 0.5 mg/dL (0.2-1.3); BLOOD UREA NITROGEN 13 mg/dL (7-20); CALCIUM 9.1 mg/dL (8.4-10.2); CARBON DIOXIDE 24 mmol/L (22-30); CHLORIDE 99 mmol/L (98-107); GLUCOSE 111 mg/dL (75-110); PHOSPHORUS 5.1 mg/dL (2.5-4.5); POTASSIUM 3.9 mmol/L (3.6-5.0); SODIUM 135.7 mmol/L (137-145); TOTAL PROTEIN 6.1 g/dL (6.3-8.2)
[2018-07-20 07:17] LABS: ABSOLUTE LYMPHOCYTES# (MANUAL) 1.8 10^3/uL (0.5-4.7); ABSOLUTE MONOCYTES # (MANUAL) 0.2 10^3/uL (0.1-1.4); ABSOLUTE NEUTROPHILS# (MANUAL) 3.8 10^3/uL (1.7-8.2); BAND NEUTROPHILS % (MANUAL) 2 % (3-5); BASOPHILS % (MANUAL) 0 % (0-2); EOSINOPHILS % (MANUAL) 0 % (0-6); LYMPHOCYTES % (MANUAL) 29 % (13-45); METAMYELOCYTES % (MANUAL) 2 % (0); MONOCYTES % (MANUAL) 4 % (3-13); SEGMENTED NEUTROPHILS % (MAN) 61 % (42-78); TOTAL CELLS COUNTED 100
[2018-07-20 07:19] LABS: PLATELET COMMENT ADEQUATE; RBC MORPHOLOGY COMMENT NORMO-CYTIC/CHROMIC; TOXIC GRANULATION SLIGHT
[2018-07-20] MEDS: PRIMIDONE 50 MG TABLET PO SCH (10:00)
[2018-07-20] MEDS: FLUTICASONE NASAL SPRAY 50 MCG/SPRY 120 SPRAY/16 GM NASL SCH (10:05)
[2018-07-20] MEDS: BEER PO SCH (10:05)
[2018-07-20] MEDS: FLUTICASONE/VILANTEROL 200-25 MCG/DOSE IH SCH (10:05)
[2018-07-20] MEDS: AMANTADINE HCL 100 MG CAPSULE PO SCH (10:06)
[2018-07-20] MEDS: LEVOFLOXACIN 750 MG TABLET PO SCH (10:06)
[2018-07-20] MEDS: ATENOLOL 50 MG TABLET PO SCH (10:07)
[2018-07-20] MEDS: BENZTROPINE MESYLATE 1 MG TABLET PO SCH (10:10)
[2018-07-20] MEDS: PANTOPRAZOLE SODIUM 40 MG TABLET.DR PO SCH (10:10)
[2018-07-20] MEDS: FAMOTIDINE 20 MG TABLET PO SCH (10:10)
[2018-07-20] MEDS: THIAMINE HCL 100 MG TABLET PO SCH (10:12)
[2018-07-20] MEDS: PREDNISONE 20 MG TABLET PO SCH (10:12)
[2018-07-20] MEDS: FOLIC ACID 1 MG TABLET PO SCH (10:14)
[2018-07-20 10:55] VITALS: BP 129/72
== END 2018-07-20 11:40 | disposition home or self-care (01) | DRG 194 ==
LOC: ER 18:06 → EH 07-17 00:57 → 3W 07-17 02:21
PROVIDERS: ADMIT Internal Medicine; ATTEND Internal Medicine
DX: J18.9 Pneumonia, unspecified organism (principal); F10.230 Alcohol dependence with withdrawal, uncomplicated; J44.1 Chronic obstructive pulmonary disease with (acute) exacerbation; I10 Essential (primary) hypertension; E11.8 Type 2 diabetes mellitus with unspecified complications; K21.9 Gastro-esophageal reflux disease without esophagitis; G20 Parkinson's disease
CPT/HCPCS: 36415; 71046; 80048; 80053; 81001; 83735; 84100; 85025; 87040; 94640; 94667; 94668; 94799; 96374; 96375; 99284; J0696; J1644; J1956; J2060; J2930; J3490; J7120; J7512; J7620